=== PATIENT | male | born 1940 | race Caucasian/White ===

== ENCOUNTER 2022-09-27 13:13 | Inpatient (IN) | payer MEDICARE, BC ==
[~2022-09-27] VITALS: Ht 177.8 cm; Wt 78.9 kg
[2022-09-27] MEDS ORDERED: ACETAMINOPHEN TAB 650MG DOSE (2X325MG) PO PRN (14:50)
[2022-09-27] MEDS ORDERED: RAMELTEON 8 MG TAB (ROZEREM) PO PRN (14:55)
[2022-09-27 15:15] VITALS: BP 164/93
[2022-09-27] MEDS ORDERED: ASPI81CH33 PO (16:30)
[2022-09-27] MEDS ORDERED: ATOR80TA59 PO (16:30)
[2022-09-27] MEDS ORDERED: ASPI81TA26 PO (16:30)
[2022-09-27] MEDS ORDERED: CEFT1INJ5 IV (16:30)
[2022-09-27] MEDS ORDERED: CLOP75TA99 PO (16:30)
[2022-09-27] MEDS ORDERED: [UNRECOGNIZED DRUG - CODE] PO (16:30)
[2022-09-27] MEDS ORDERED: FOSF3PAC2 PO (16:30)
[2022-09-27] MEDS ORDERED: ACET-683 PO (16:35)
[2022-09-27] MEDS ORDERED: CIDA500T2 PO (16:35)
[2022-09-27] MEDS ORDERED: HOME MED LIST COMPLETE! XX SCH ×2 (16:35→16:40)
[2022-09-27] MEDS ORDERED: TURM500T PO (16:35)
[2022-09-27] MEDS ORDERED: THERTAB19 PO (16:35)
[2022-09-27 18:00] VITALS: BP 135/80
[2022-09-27] MEDS: DOCUSATE SODIUM 100MG CAPSULE PO SCH (20:23)
[2022-09-27] MEDS: SENNA 8.6 MG TAB (SENOKOT) PO SCH (20:23)
[2022-09-27] MEDS: ATORVASTATIN 20 MG TAB PO SCH (20:24)
[2022-09-27] MEDS: HEPARIN SOD (PORCINE) 5000UNITS/ML 1ML VIAL/SYRINGE SC SCH (20:24)
[2022-09-28 05:40] VITALS: BP 158/73
[2022-09-28 06:44] LABS: BASO # 0.1 10^3/uL (0.0-0.2); BASO % 1.1 % (0.0-1.0); EOS # 0.5 10^3/uL (0.0-0.5); EOS % 8.3 % (0.0-3.0); HEMATOCRIT 35.3 % (42.0-52.0); HEMOGLOBIN 12.5 g/dl (13.5-17.5); LYMPH # 1.9 10^3/uL (1.5-5.0); LYMPH % 30.9 % (24.0-44.0); MEAN CORPUSCULAR HEMOGLOBIN 32.8 pg (27.0-33.0); MEAN CORPUSCULAR HGB CONC 35.4 g/dl (32.0-36.5); MEAN CORPUSCULAR VOLUME 92.7 fl (80.0-96.0); MONO # 0.6 10^3/uL (0.0-0.8); MONO % 10.2 % (2.0-8.0); NEUTROPHILS # 3.1 10^3/uL (1.5-8.5); NEUTROPHILS % 49.2 % (36.0-66.0); PLATELET COUNT, AUTOMATED 184 10^3/uL (150-450); RED BLOOD COUNT 3.81 10^6/uL (4.30-6.10); WHITE BLOOD COUNT 6.3 10^3/uL (4.0-10.0)
[2022-09-28 07:14] LABS: ALBUMIN 3.4 G/DL (3.2-5.2); ALKALINE PHOSPHATASE 67 U/L (46-116); ALT/SGPT 20 U/L (7.0-40); AST/SGOT 29 U/L (<34); BLOOD UREA NITROGEN 11 MG/DL (9-23); CALCIUM LEVEL 8.7 MG/DL (8.3-10.6); CARBON DIOXIDE LEVEL 24 MMOL/L (20-31); CHLORIDE LEVEL 108 MMOL/L (98-107); CREATININE FOR GFR 0.67 MG/DL (0.70-1.30); GLOMERULAR FILTRATION RATE > 60.0 (>35); GLUCOSE, FASTING 99 MG/DL (74-106); POTASSIUM SERUM 3.7 MMOL/L (3.5-5.1); SODIUM LEVEL 143 MMOL/L (136-145); TOTAL PROTEIN 5.8 G/DL (5.7-8.2)
[2022-09-28] MEDS ORDERED: amLODIPine 5 MG TAB PO SCH (09:00)
[2022-09-28] MEDS: DOCUSATE SODIUM 100MG CAPSULE PO SCH ×2 (09:24→20:47)
[2022-09-28] MEDS: MULTIVITAMINS/MINERALS THERAP 1 TAB PO SCH (09:24)
[2022-09-28] MEDS: ASPIRIN 81MG ENTERIC TABLET PO SCH (09:24)
[2022-09-28] MEDS: CLOPIDOGREL 75 MG TAB PO SCH (09:25)
[2022-09-28] MEDS: PANTOPRAZOLE 40MG TAB (PROTONIX) PO SCH (09:25)
[2022-09-28] MEDS: FLUoxetine 10 MG CAP PO SCH (09:53)
[2022-09-28] MEDS: HEPARIN SOD (PORCINE) 5000UNITS/ML 1ML VIAL/SYRINGE SC SCH ×2 (09:53→20:44)
[2022-09-28] MEDS: ACETAMINOPHEN 500 MG TAB PO SCH ×4 (09:54→20:45)
[2022-09-28 14:00] VITALS: BP 120/76
[2022-09-28] MEDS: LACTOBACILLUS ACIDOPHILUS CAP (BACID) PO SCH ×2 (17:59→20:48)
[2022-09-28] MEDS: CEPHALEXIN 500 MG CAP PO SCH (17:59)
[2022-09-28 20:00] VITALS: BP 130/70
[2022-09-28] MEDS ORDERED: ASPIRIN 81MG CHEW TABLET PO ONE (20:20)
[2022-09-28] MEDS: ATORVASTATIN 20 MG TAB PO SCH (20:45)
[2022-09-28] MEDS: SENNA 8.6 MG TAB (SENOKOT) PO SCH (20:47)
[2022-09-29] MEDS: CEPHALEXIN 500 MG CAP PO SCH ×5 (00:07→23:50)
[2022-09-29 06:41] LABS: BASO # 0.1 10^3/uL (0.0-0.2); BASO % 1.1 % (0.0-1.0); EOS # 0.5 10^3/uL (0.0-0.5); EOS % 6.8 % (0.0-3.0); HEMATOCRIT 36.3 % (42.0-52.0); HEMOGLOBIN 12.8 g/dl (13.5-17.5); LYMPH # 2.1 10^3/uL (1.5-5.0); LYMPH % 31.6 % (24.0-44.0); MEAN CORPUSCULAR HGB CONC 35.3 g/dl (32.0-36.5); MEAN CORPUSCULAR VOLUME 93.6 fl (80.0-96.0); MONO # 0.7 10^3/uL (0.0-0.8); MONO % 10.5 % (2.0-8.0); NEUTROPHILS # 3.3 10^3/uL (1.5-8.5); NEUTROPHILS % 49.8 % (36.0-66.0); PLATELET COUNT, AUTOMATED 196 10^3/uL (150-450); RED BLOOD COUNT 3.88 10^6/uL (4.30-6.10); WHITE BLOOD COUNT 6.6 10^3/uL (4.0-10.0)
[2022-09-29 06:46] VITALS: BP 138/84
[2022-09-29] MEDS: DOCUSATE SODIUM 100MG CAPSULE PO SCH ×2 (09:00→20:55)
[2022-09-29] MEDS: LACTOBACILLUS ACIDOPHILUS CAP (BACID) PO SCH ×4 (09:16→20:56)
[2022-09-29] MEDS: CLOPIDOGREL 75 MG TAB PO SCH (09:17)
[2022-09-29] MEDS: ASPIRIN 81MG ENTERIC TABLET PO SCH (09:17)
[2022-09-29] MEDS: FLUoxetine 10 MG CAP PO SCH (09:17)
[2022-09-29] MEDS: PANTOPRAZOLE 40MG TAB (PROTONIX) PO SCH (09:17)
[2022-09-29] MEDS: MULTIVITAMINS/MINERALS THERAP 1 TAB PO SCH (09:17)
[2022-09-29] MEDS: ACETAMINOPHEN 500 MG TAB PO SCH ×3 (09:19→21:02)
[2022-09-29] MEDS: HEPARIN SOD (PORCINE) 5000UNITS/ML 1ML VIAL/SYRINGE SC SCH ×2 (09:19→20:58)
[2022-09-29] MEDS: LIDOCAINE 5% (LIDODERM) PATCH TD SCH (11:49)
[2022-09-29] MEDS: GABAPENTIN 100 MG CAP PO SCH ×3 (11:49→20:58)
[2022-09-29 12:47] LABS: BLOOD UREA NITROGEN 15 MG/DL (9-23); CALCIUM LEVEL 8.6 MG/DL (8.3-10.6); CARBON DIOXIDE LEVEL 26 MMOL/L (20-31); CHLORIDE LEVEL 111 MMOL/L (98-107); CREATININE FOR GFR 0.71 MG/DL (0.70-1.30); GLOMERULAR FILTRATION RATE > 60.0 (>35); GLUCOSE, FASTING 94 MG/DL (74-106); POTASSIUM SERUM 3.9 MMOL/L (3.5-5.1); SODIUM LEVEL 145 MMOL/L (136-145)
[2022-09-29 14:00] VITALS: BP 112/73
[2022-09-29 20:00] VITALS: BP 123/76
[2022-09-29] MEDS: RAMELTEON 8 MG TAB (ROZEREM) PO SCH (20:55)
[2022-09-29] MEDS: SENNA 8.6 MG TAB (SENOKOT) PO SCH (20:55)
[2022-09-29] MEDS: ATORVASTATIN 20 MG TAB PO SCH (20:56)
[2022-09-30] MEDS: CEPHALEXIN 500 MG CAP PO SCH ×4 (05:32→23:56)
[2022-09-30 06:00] VITALS: BP 134/74
[2022-09-30] MEDS: DOCUSATE SODIUM 100MG CAPSULE PO SCH ×2 (07:35→19:19)
[2022-09-30] MEDS: CLOPIDOGREL 75 MG TAB PO SCH (08:10)
[2022-09-30] MEDS: ACETAMINOPHEN 500 MG TAB PO SCH ×3 (08:10→20:06)
[2022-09-30] MEDS: MULTIVITAMINS/MINERALS THERAP 1 TAB PO SCH (08:11)
[2022-09-30] MEDS: FLUoxetine 10 MG CAP PO SCH (08:11)
[2022-09-30] MEDS: ASPIRIN 81MG ENTERIC TABLET PO SCH (08:11)
[2022-09-30] MEDS: LACTOBACILLUS ACIDOPHILUS CAP (BACID) PO SCH ×4 (08:11→20:06)
[2022-09-30] MEDS: PANTOPRAZOLE 40MG TAB (PROTONIX) PO SCH (08:11)
[2022-09-30] MEDS: GABAPENTIN 100 MG CAP PO SCH ×3 (08:11→20:06)
[2022-09-30] MEDS: LIDOCAINE 5% (LIDODERM) PATCH TD SCH (08:12)
[2022-09-30] MEDS: HEPARIN SOD (PORCINE) 5000UNITS/ML 1ML VIAL/SYRINGE SC SCH (08:12)
[2022-09-30 11:22] LABS: BASO # 0.1 10^3/uL (0.0-0.2); BASO % 0.9 % (0.0-1.0); EOS # 0.2 10^3/uL (0.0-0.5); HEMATOCRIT 36.8 % (42.0-52.0); HEMOGLOBIN 12.7 g/dl (13.5-17.5); LYMPH # 1.1 10^3/uL (1.5-5.0); LYMPH % 13.8 % (24.0-44.0); MEAN CORPUSCULAR HEMOGLOBIN 32.7 pg (27.0-33.0); MEAN CORPUSCULAR HGB CONC 34.5 g/dl (32.0-36.5); MEAN CORPUSCULAR VOLUME 94.8 fl (80.0-96.0); MONO # 0.6 10^3/uL (0.0-0.8); MONO % 7.4 % (2.0-8.0); NEUTROPHILS # 6.1 10^3/uL (1.5-8.5); NEUTROPHILS % 75.6 % (36.0-66.0); PLATELET COUNT, AUTOMATED 202 10^3/uL (150-450); RED BLOOD COUNT 3.88 10^6/uL (4.30-6.10)
[2022-09-30 14:00] VITALS: BP 157/74
[2022-09-30] MEDS: SENNA 8.6 MG TAB (SENOKOT) PO SCH (19:19)
[2022-09-30 20:00] VITALS: BP 105/60
[2022-09-30] MEDS: RAMELTEON 8 MG TAB (ROZEREM) PO SCH (20:06)
[2022-09-30] MEDS: ATORVASTATIN 20 MG TAB PO SCH (20:06)
[2022-10-01] MEDS: CEPHALEXIN 500 MG CAP PO SCH ×4 (05:35→23:57)
[2022-10-01 06:00] VITALS: BP 137/74
[2022-10-01] MEDS: ASPIRIN 81MG ENTERIC TABLET PO SCH (08:26)
[2022-10-01] MEDS: MULTIVITAMINS/MINERALS THERAP 1 TAB PO SCH (08:26)
[2022-10-01] MEDS: CLOPIDOGREL 75 MG TAB PO SCH (08:27)
[2022-10-01] MEDS: LACTOBACILLUS ACIDOPHILUS CAP (BACID) PO SCH ×4 (08:27→20:37)
[2022-10-01] MEDS: ACETAMINOPHEN 500 MG TAB PO SCH ×3 (08:27→20:37)
[2022-10-01] MEDS: PANTOPRAZOLE 40MG TAB (PROTONIX) PO SCH (08:27)
[2022-10-01] MEDS: LIDOCAINE 5% (LIDODERM) PATCH TD SCH (08:27)
[2022-10-01] MEDS: GABAPENTIN 100 MG CAP PO SCH ×3 (08:27→20:37)
[2022-10-01] MEDS: FLUoxetine 10 MG CAP PO SCH (08:27)
[2022-10-01] MEDS: DOCUSATE SODIUM 100MG CAPSULE PO SCH ×2 (08:29→20:41)
[2022-10-01] MEDS: guaiFENesin 200 MG TAB PO SCH ×3 (09:00→20:37)
[2022-10-01 10:26] LABS: BASO # 0.1 10^3/uL (0.0-0.2); BASO % 0.8 % (0.0-1.0); EOS # 0.3 10^3/uL (0.0-0.5); HEMATOCRIT 34.7 % (42.0-52.0); HEMOGLOBIN 12.3 g/dl (13.5-17.5); LYMPH # 0.8 10^3/uL (1.5-5.0); LYMPH % 10.4 % (24.0-44.0); MEAN CORPUSCULAR HEMOGLOBIN 33.3 pg (27.0-33.0); MEAN CORPUSCULAR HGB CONC 35.4 g/dl (32.0-36.5); MONO # 0.7 10^3/uL (0.0-0.8); NEUTROPHILS # 5.5 10^3/uL (1.5-8.5); NEUTROPHILS % 74.5 % (36.0-66.0); PLATELET COUNT, AUTOMATED 188 10^3/uL (150-450); RED BLOOD COUNT 3.69 10^6/uL (4.30-6.10); WHITE BLOOD COUNT 7.3 10^3/uL (4.0-10.0)
[2022-10-01 14:00] VITALS: BP 126/70
[2022-10-01 18:00] VITALS: BP 142/80
[2022-10-01] MEDS: ATORVASTATIN 20 MG TAB PO SCH (20:37)
[2022-10-01] MEDS: RAMELTEON 8 MG TAB (ROZEREM) PO SCH (20:41)
[2022-10-01] MEDS: SENNA 8.6 MG TAB (SENOKOT) PO SCH (20:41)
[2022-10-02 06:00] VITALS: BP 138/68
[2022-10-02] MEDS: CEPHALEXIN 500 MG CAP PO SCH ×4 (06:17→23:40)
[2022-10-02 06:47] LABS: BASO # 0.1 10^3/uL (0.0-0.2); BASO % 0.7 % (0.0-1.0); EOS # 0.1 10^3/uL (0.0-0.5); EOS % 1.8 % (0.0-3.0); HEMATOCRIT 35.4 % (42.0-52.0); HEMOGLOBIN 12.2 g/dl (13.5-17.5); LYMPH % 14.9 % (24.0-44.0); MEAN CORPUSCULAR HEMOGLOBIN 32.6 pg (27.0-33.0); MEAN CORPUSCULAR HGB CONC 34.5 g/dl (32.0-36.5); MEAN CORPUSCULAR VOLUME 94.7 fl (80.0-96.0); MONO # 0.9 10^3/uL (0.0-0.8); MONO % 13.7 % (2.0-8.0); NEUTROPHILS # 4.7 10^3/uL (1.5-8.5); NEUTROPHILS % 68.6 % (36.0-66.0); PLATELET COUNT, AUTOMATED 175 10^3/uL (150-450); RED BLOOD COUNT 3.74 10^6/uL (4.30-6.10); WHITE BLOOD COUNT 6.8 10^3/uL (4.0-10.0)
[2022-10-02 07:09] LABS: BLOOD UREA NITROGEN 13 MG/DL (9-23); CALCIUM LEVEL 8.3 MG/DL (8.3-10.6); CARBON DIOXIDE LEVEL 29 MMOL/L (20-31); CHLORIDE LEVEL 105 MMOL/L (98-107); CREATININE FOR GFR 0.72 MG/DL (0.70-1.30); GLOMERULAR FILTRATION RATE > 60.0 (>35); GLUCOSE, FASTING 103 MG/DL (74-106); POTASSIUM SERUM 3.6 MMOL/L (3.5-5.1); SODIUM LEVEL 142 MMOL/L (136-145)
[2022-10-02] MEDS: LIDOCAINE 5% (LIDODERM) PATCH TD SCH (09:00)
[2022-10-02] MEDS: DOCUSATE SODIUM 100MG CAPSULE PO SCH ×4 (09:00→22:53)
[2022-10-02] MEDS: MULTIVITAMINS/MINERALS THERAP 1 TAB PO SCH (09:25)
[2022-10-02] MEDS: CLOPIDOGREL 75 MG TAB PO SCH (09:25)
[2022-10-02] MEDS: PANTOPRAZOLE 40MG TAB (PROTONIX) PO SCH (09:25)
[2022-10-02] MEDS: guaiFENesin 200 MG TAB PO SCH ×3 (09:25→22:54)
[2022-10-02] MEDS: ASPIRIN 81MG ENTERIC TABLET PO SCH (09:25)
[2022-10-02] MEDS: FLUoxetine 10 MG CAP PO SCH (09:26)
[2022-10-02] MEDS: ACETAMINOPHEN 500 MG TAB PO SCH ×3 (09:26→22:54)
[2022-10-02] MEDS: GABAPENTIN 100 MG CAP PO SCH ×3 (09:26→22:53)
[2022-10-02] MEDS: LACTOBACILLUS ACIDOPHILUS CAP (BACID) PO SCH ×4 (09:36→22:52)
[2022-10-02 14:00] VITALS: BP 113/57
[2022-10-02 20:00] VITALS: BP 103/67
[2022-10-02] MEDS: SENNA 8.6 MG TAB (SENOKOT) PO SCH (22:52)
[2022-10-02] MEDS: ATORVASTATIN 20 MG TAB PO SCH (22:53)
[2022-10-02] MEDS: RAMELTEON 8 MG TAB (ROZEREM) PO SCH (22:53)
[2022-10-03] MEDS: CEPHALEXIN 500 MG CAP PO SCH ×4 (05:16→23:35)
[2022-10-03 06:00] VITALS: BP 129/72
[2022-10-03] MEDS: LIDOCAINE 5% (LIDODERM) PATCH TD SCH (09:00)
[2022-10-03] MEDS: MULTIVITAMINS/MINERALS THERAP 1 TAB PO SCH (10:01)
[2022-10-03] MEDS: PANTOPRAZOLE 40MG TAB (PROTONIX) PO SCH (10:02)
[2022-10-03] MEDS: FLUoxetine 10 MG CAP PO SCH (10:02)
[2022-10-03] MEDS: LACTOBACILLUS ACIDOPHILUS CAP (BACID) PO SCH ×4 (10:04→20:20)
[2022-10-03] MEDS: GABAPENTIN 100 MG CAP PO SCH ×3 (10:04→20:20)
[2022-10-03] MEDS: guaiFENesin 200 MG TAB PO SCH ×3 (10:05→20:20)
[2022-10-03] MEDS: DOCUSATE SODIUM 100MG CAPSULE PO SCH (10:05)
[2022-10-03] MEDS: ACETAMINOPHEN 500 MG TAB PO SCH ×3 (10:06→20:19)
[2022-10-03] MEDS: CLOPIDOGREL 75 MG TAB PO SCH (10:07)
[2022-10-03] MEDS: ASPIRIN 81MG ENTERIC TABLET PO SCH (10:07)
[2022-10-03 14:00] VITALS: BP 110/51
[2022-10-03] MEDS: SODIUM CHLORIDE NASAL 0.65% SPRAY BTL (OCEAN) SCH ×2 (15:42→20:21)
[2022-10-03] MEDS: RAMELTEON 8 MG TAB (ROZEREM) PO SCH (20:21)
[2022-10-03] MEDS: ATORVASTATIN 20 MG TAB PO SCH (20:21)
[2022-10-03] MEDS: SENNA 8.6 MG TAB (SENOKOT) PO SCH (20:21)
[2022-10-03] MEDS: OSELTAMIVIR PHOSPHATE 75 MG CAP (TAMIFLU) PO SCH (20:21)
[2022-10-03] MEDS: FLUTICASONE PROP 0.05% NASAL SPRAY 16 GM (FLONASE) NARES SCH (20:22)
[2022-10-03 20:23] VITALS: BP 133/79
[2022-10-04] MEDS: CEPHALEXIN 500 MG CAP PO SCH ×3 (05:41→17:13)
[2022-10-04 05:56] LABS: BASO # 0.1 10^3/uL (0.0-0.2); EOS # 0.4 10^3/uL (0.0-0.5); EOS % 7.5 % (0.0-3.0); HEMATOCRIT 35.7 % (42.0-52.0); HEMOGLOBIN 12.3 g/dl (13.5-17.5); LYMPH # 1.4 10^3/uL (1.5-5.0); LYMPH % 26.9 % (24.0-44.0); MEAN CORPUSCULAR HEMOGLOBIN 32.5 pg (27.0-33.0); MEAN CORPUSCULAR HGB CONC 34.5 g/dl (32.0-36.5); MEAN CORPUSCULAR VOLUME 94.2 fl (80.0-96.0); MONO # 0.5 10^3/uL (0.0-0.8); MONO % 10.2 % (2.0-8.0); NEUTROPHILS # 2.8 10^3/uL (1.5-8.5); NEUTROPHILS % 54.2 % (36.0-66.0); PLATELET COUNT, AUTOMATED 175 10^3/uL (150-450); RED BLOOD COUNT 3.79 10^6/uL (4.30-6.10); WHITE BLOOD COUNT 5.1 10^3/uL (4.0-10.0)
[2022-10-04 06:00] VITALS: BP 136/75
[2022-10-04 06:51] LABS: BLOOD UREA NITROGEN 14 MG/DL (9-23); CALCIUM LEVEL 8.2 MG/DL (8.3-10.6); CARBON DIOXIDE LEVEL 28 MMOL/L (20-31); CHLORIDE LEVEL 103 MMOL/L (98-107); CREATININE FOR GFR 0.66 MG/DL (0.70-1.30); GLOMERULAR FILTRATION RATE > 60.0 (>35); GLUCOSE, FASTING 103 MG/DL (74-106); POTASSIUM SERUM 3.5 MMOL/L (3.5-5.1); SODIUM LEVEL 140 MMOL/L (136-145)
[2022-10-04] MEDS: FLUTICASONE PROP 0.05% NASAL SPRAY 16 GM (FLONASE) NARES SCH ×2 (09:00→21:00)
[2022-10-04] MEDS: SODIUM CHLORIDE NASAL 0.65% SPRAY BTL (OCEAN) SCH ×3 (09:00→21:00)
[2022-10-04] MEDS: DOCUSATE SODIUM 100MG CAPSULE PO SCH ×2 (09:00→21:13)
[2022-10-04] MEDS: PANTOPRAZOLE 40MG TAB (PROTONIX) PO SCH (09:01)
[2022-10-04] MEDS: MULTIVITAMINS/MINERALS THERAP 1 TAB PO SCH (09:01)
[2022-10-04] MEDS: ASPIRIN 81MG ENTERIC TABLET PO SCH (09:02)
[2022-10-04] MEDS: LACTOBACILLUS ACIDOPHILUS CAP (BACID) PO SCH ×4 (09:02→21:13)
[2022-10-04] MEDS: guaiFENesin 200 MG TAB PO SCH ×3 (09:02→21:13)
[2022-10-04] MEDS: OSELTAMIVIR PHOSPHATE 75 MG CAP (TAMIFLU) PO SCH ×2 (09:02→21:13)
[2022-10-04] MEDS: CLOPIDOGREL 75 MG TAB PO SCH (09:02)
[2022-10-04] MEDS: GABAPENTIN 100 MG CAP PO SCH ×3 (09:02→21:13)
[2022-10-04] MEDS: FLUoxetine 10 MG CAP PO SCH (09:02)
[2022-10-04] MEDS: ACETAMINOPHEN 500 MG TAB PO SCH ×3 (09:02→21:14)
[2022-10-04] MEDS: LIDOCAINE 5% (LIDODERM) PATCH TD SCH (09:02)
[2022-10-04 14:00] VITALS: BP 139/69
[2022-10-04 19:36] VITALS: BP 114/70
[2022-10-04] MEDS: SENNA 8.6 MG TAB (SENOKOT) PO SCH (21:00)
[2022-10-04] MEDS: RAMELTEON 8 MG TAB (ROZEREM) PO SCH (21:00)
[2022-10-04] MEDS: ATORVASTATIN 20 MG TAB PO SCH (21:13)
[2022-10-05] MEDS: CEPHALEXIN 500 MG CAP PO SCH ×3 (00:02→12:26)
[2022-10-05] MEDS ORDERED: GABAPENTIN 100 MG CAP PO ONE (00:20)
[2022-10-05 05:53] VITALS: BP 138/88
[2022-10-05] MEDS: FLUoxetine 10 MG CAP PO SCH (07:14)
[2022-10-05] MEDS: OSELTAMIVIR PHOSPHATE 75 MG CAP (TAMIFLU) PO SCH ×2 (07:14→20:42)
[2022-10-05] MEDS: LACTOBACILLUS ACIDOPHILUS CAP (BACID) PO SCH ×4 (07:14→20:42)
[2022-10-05] MEDS: guaiFENesin 200 MG TAB PO SCH ×3 (07:14→20:42)
[2022-10-05] MEDS: CLOPIDOGREL 75 MG TAB PO SCH (07:15)
[2022-10-05] MEDS: ACETAMINOPHEN 500 MG TAB PO SCH ×3 (07:15→20:43)
[2022-10-05] MEDS: PANTOPRAZOLE 40MG TAB (PROTONIX) PO SCH (07:15)
[2022-10-05] MEDS: GABAPENTIN 100 MG CAP PO SCH ×3 (07:15→20:42)
[2022-10-05] MEDS: MULTIVITAMINS/MINERALS THERAP 1 TAB PO SCH (07:15)
[2022-10-05] MEDS: DOCUSATE SODIUM 100MG CAPSULE PO SCH ×2 (07:15→20:42)
[2022-10-05] MEDS: ASPIRIN 81MG ENTERIC TABLET PO SCH (07:16)
[2022-10-05] MEDS: FLUTICASONE PROP 0.05% NASAL SPRAY 16 GM (FLONASE) NARES SCH ×2 (08:30→20:44)
[2022-10-05] MEDS: LIDOCAINE 5% (LIDODERM) PATCH TD SCH (08:30)
[2022-10-05] MEDS: SODIUM CHLORIDE NASAL 0.65% SPRAY BTL (OCEAN) SCH ×3 (08:30→20:44)
[2022-10-05 14:00] VITALS: BP 127/66
[2022-10-05 20:00] VITALS: BP 110/60
[2022-10-05] MEDS: SENNA 8.6 MG TAB (SENOKOT) PO SCH (20:42)
[2022-10-05] MEDS: ATORVASTATIN 20 MG TAB PO SCH (20:42)
[2022-10-05] MEDS: RAMELTEON 8 MG TAB (ROZEREM) PO SCH (20:45)
[2022-10-06 06:00] VITALS: BP 131/71
[2022-10-06 06:33] LABS: BASO # 0.1 10^3/uL (0.0-0.2); BASO % 0.8 % (0.0-1.0); EOS # 0.3 10^3/uL (0.0-0.5); EOS % 5.4 % (0.0-3.0); HEMATOCRIT 37.3 % (42.0-52.0); LYMPH # 1.9 10^3/uL (1.5-5.0); LYMPH % 30.8 % (24.0-44.0); MEAN CORPUSCULAR HEMOGLOBIN 32.5 pg (27.0-33.0); MEAN CORPUSCULAR HGB CONC 34.9 g/dl (32.0-36.5); MEAN CORPUSCULAR VOLUME 93.3 fl (80.0-96.0); MONO # 0.5 10^3/uL (0.0-0.8); MONO % 7.8 % (2.0-8.0); NEUTROPHILS # 3.4 10^3/uL (1.5-8.5); NEUTROPHILS % 54.9 % (36.0-66.0); PLATELET COUNT, AUTOMATED 216 10^3/uL (150-450); WHITE BLOOD COUNT 6.2 10^3/uL (4.0-10.0)
[2022-10-06 07:08] LABS: BLOOD UREA NITROGEN 13 MG/DL (9-23); CALCIUM LEVEL 8.3 MG/DL (8.3-10.6); CARBON DIOXIDE LEVEL 30 MMOL/L (20-31); CHLORIDE LEVEL 103 MMOL/L (98-107); CREATININE FOR GFR 0.67 MG/DL (0.70-1.30); GLOMERULAR FILTRATION RATE > 60.0 (>35); GLUCOSE, FASTING 95 MG/DL (74-106); POTASSIUM SERUM 4.1 MMOL/L (3.5-5.1); SODIUM LEVEL 140 MMOL/L (136-145)
[2022-10-06] MEDS: LACTOBACILLUS ACIDOPHILUS CAP (BACID) PO SCH ×4 (08:00→21:51)
[2022-10-06] MEDS: DOCUSATE SODIUM 100MG CAPSULE PO SCH ×2 (09:00→21:51)
[2022-10-06] MEDS: FLUTICASONE PROP 0.05% NASAL SPRAY 16 GM (FLONASE) NARES SCH ×2 (09:00→21:00)
[2022-10-06] MEDS: ACETAMINOPHEN 500 MG TAB PO SCH ×3 (09:00→21:51)
[2022-10-06] MEDS: LIDOCAINE 5% (LIDODERM) PATCH TD SCH (09:00)
[2022-10-06] MEDS: SODIUM CHLORIDE NASAL 0.65% SPRAY BTL (OCEAN) SCH ×3 (09:00→21:00)
[2022-10-06] MEDS: OSELTAMIVIR PHOSPHATE 75 MG CAP (TAMIFLU) PO SCH ×2 (09:14→21:50)
[2022-10-06] MEDS: CLOPIDOGREL 75 MG TAB PO SCH (09:14)
[2022-10-06] MEDS: FLUoxetine 10 MG CAP PO SCH (09:14)
[2022-10-06] MEDS: ASPIRIN 81MG ENTERIC TABLET PO SCH (09:14)
[2022-10-06] MEDS: GABAPENTIN 100 MG CAP PO SCH ×3 (09:14→21:51)
[2022-10-06] MEDS: PANTOPRAZOLE 40MG TAB (PROTONIX) PO SCH (09:14)
[2022-10-06] MEDS: MULTIVITAMINS/MINERALS THERAP 1 TAB PO SCH (09:14)
[2022-10-06] MEDS: guaiFENesin 200 MG TAB PO SCH ×3 (09:15→21:51)
[2022-10-06 14:00] VITALS: BP 132/64
[2022-10-06 20:00] VITALS: BP 109/69
[2022-10-06] MEDS: RAMELTEON 8 MG TAB (ROZEREM) PO SCH (21:51)
[2022-10-06] MEDS: ATORVASTATIN 20 MG TAB PO SCH (21:51)
[2022-10-06] MEDS: SENNA 8.6 MG TAB (SENOKOT) PO SCH (21:51)
[2022-10-07 06:00] VITALS: BP 155/87
[2022-10-07] MEDS: guaiFENesin 200 MG TAB PO SCH (08:48)
[2022-10-07] MEDS: OSELTAMIVIR PHOSPHATE 75 MG CAP (TAMIFLU) PO SCH (08:48)
[2022-10-07] MEDS: FLUoxetine 10 MG CAP PO SCH (08:48)
[2022-10-07] MEDS: MULTIVITAMINS/MINERALS THERAP 1 TAB PO SCH (08:48)
[2022-10-07] MEDS: DOCUSATE SODIUM 100MG CAPSULE PO SCH (08:48)
[2022-10-07] MEDS: ASPIRIN 81MG ENTERIC TABLET PO SCH (08:48)
[2022-10-07] MEDS: GABAPENTIN 100 MG CAP PO SCH (08:48)
[2022-10-07] MEDS: LACTOBACILLUS ACIDOPHILUS CAP (BACID) PO SCH ×2 (08:48→12:07)
[2022-10-07] MEDS: ACETAMINOPHEN 500 MG TAB PO SCH (08:48)
[2022-10-07] MEDS: CLOPIDOGREL 75 MG TAB PO SCH (08:48)
[2022-10-07] MEDS: PANTOPRAZOLE 40MG TAB (PROTONIX) PO SCH (08:48)
[2022-10-07 08:49] VITALS: BP 142/74
[2022-10-07] MEDS: SODIUM CHLORIDE NASAL 0.65% SPRAY BTL (OCEAN) SCH (08:49)
[2022-10-07] MEDS: FLUTICASONE PROP 0.05% NASAL SPRAY 16 GM (FLONASE) NARES SCH (08:49)
[2022-10-07] MEDS: LIDOCAINE 5% (LIDODERM) PATCH TD SCH (08:50)
[2022-10-07] MEDS ORDERED: CLOP75TA99 PO (10:40)
[2022-10-07] MEDS ORDERED: ASPI81TA26 PO (10:40)
[2022-10-07] MEDS ORDERED: ATOR80TA59 PO (10:40)
[2022-10-07] MEDS ORDERED: OSEL75CA2 PO (10:40)
[2022-10-07] MEDS ORDERED: FLUO10CA18 PO (10:40)
[2022-10-07] MEDS ORDERED: GABA-1171 PO (10:40)
[2022-10-07] MEDS ORDERED: AMLO1TAB25 PO (10:40)
== END 2022-10-07 13:13 | disposition home or self-care (01) | DRG 57 ==
LOC: M PM&R 14:55
PROVIDERS: ADMIT Physical Medicine & Rehabilitation; ATTEND Physical Medicine & Rehabilitation
DX: I69.354 Hemiplegia and hemiparesis following cerebral infarction affecting left non-dominant side (principal); L03.114 Cellulitis of left upper limb; Z74.09 Other reduced mobility; I10 Essential (primary) hypertension; I69.392 Facial weakness following cerebral infarction; I69.398 Other sequelae of cerebral infarction; H53.9 Unspecified visual disturbance; Z79.02 Long term (current) use of antithrombotics/antiplatelets; Z79.82 Long term (current) use of aspirin; Z79.899 Other long term (current) drug therapy; J11.1 Influenza due to unidentified influenza virus with other respiratory manifestations; E78.5 Hyperlipidemia, unspecified; I25.10 Atherosclerotic heart disease of native coronary artery without angina pectoris